=== PATIENT | female | born 2000 | race Caucasian/White ===

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

== ENCOUNTER 2019-01-07 14:23 | Emergency (ER) | payer OTHER ==
[~2019-01-07] VITALS: Ht 162.6 cm; Wt 77.1 kg
[~2019-01-07 14:23] MED LIST changes: +NORCO 5-325 TA1 EACH PO
[2019-01-07] MEDS ORDERED: PREDNISONE50 MG PO ×2 (15:35→15:40)
[2019-01-07 15:45] VITALS: BP 113/83
== END 2019-01-07 15:47 | disposition home or self-care (01) ==
LOC: M.ERS 14:23
DX: J02.9 Acute pharyngitis, unspecified (principal); T78.40XA Allergy, unspecified, initial encounter; F32.9 Major depressive disorder, single episode, unspecified; Z88.1 Allergy status to other antibiotic agents

== ENCOUNTER 2019-06-29 13:49 | Emergency (ER) | payer OTHER ==
[~2019-06-29] VITALS: Ht 162.6 cm; Wt 77.1 kg
[~2019-06-29 13:49] MED LIST changes: +PREDNISONE50 MG PO
[2019-06-29 14:27] LABS: INFLUENZA A ANTIGEN Negative (Negative); INFLUENZA B ANTIGEN Negative (Negative)
[2019-06-29 15:01] VITALS: BP 144/87
== END 2019-06-29 15:02 | disposition home or self-care (01) ==
LOC: M.ERS 13:49
PROVIDERS: Physician Assistant
DX: J06.9 Acute upper respiratory infection, unspecified (principal); Z88.1 Allergy status to other antibiotic agents